=== PATIENT | male | born 1945 | race Caucasian/White ===

== ENCOUNTER → 2018-10-04 | Outpatient (CLI) | payer OTHER ==
[~2018-10-04] MED LIST: ADULT LOW DOSE81 MG PO; APAP650 PO; CENTRUM SILVER1 EAC1 PO; CIPROFLOXACIN500 M3 PO; CLARITIN10 MG PO; DEXILANT60 MG PO; FLOMAX PO; FLOMAX0.4 MG PO; GAS-X125 MG PO; HYDROCHLOROTHIA25 M1 PO; HYDROCODONE-AP1 EA11 PO; HYDROXYCHLOROQ200 M1 PO; ICAPS TABLET1 EACH PO; IMODIUM ADVANC1 EAC1 PO; POTASSIUM CITR15 MEQ PO; PREVACID 24HR15 MG PO; PREVALITE PACKET4 GM PO; PROTONIX40 M1 PO; UNICOMPLEX M TA1 TA1 PO; [UNRECOGNIZED DRUG - OTHER] PO
== END ==
LOC: RAD 09:09
DX: M25.512 Pain in left shoulder (principal)

== ENCOUNTER → 2018-10-08 | Outpatient (CLI) | payer OTHER | LOC: MRI 12:29 | DX: S46.012A Strain of muscle(s) and tendon(s) of the rotator cuff of left shoulder, initial encounter (principal); M19.012 Primary osteoarthritis, left shoulder; W19.XXXA Unspecified fall, initial encounter; Y93.89 Activity, other specified; Y92.89 Other specified places as the place of occurrence of the external cause; Y99.8 Other external cause status ==

== ENCOUNTER → 2020-03-14 | Outpatient (CLI) | payer OTHER ==
[~2020-03-14] MED LIST changes: +ACID REDUCER20 MG PO; +ALLERGY RELIEF10 M1 PO; +FOCUS FACTOR PO; +PRESERVISION A1 EACH PO; +VITAMIN D350 MC3 PO
== END ==
LOC: LAB 08:00
PROVIDERS: ATTEND Student in an Organized Health Care Education/Training Program
DX: Z01.812 Encounter for preprocedural laboratory examination (principal); Z11.59 Encounter for screening for other viral diseases

== ENCOUNTER → 2020-03-19 | Outpatient (CLI) | payer OTHER ==
[~2020-03-19] VITALS: Ht 182.9 cm; Wt 83.5 kg
--- NOTE | 2020-03-20 18:06 | PATH ---
[facility] [address] [place] [address] PATHOLOGY RPT PROCEDURE Name: IRVINGHELEN SOSA Room #: REG [facility] MDonavan.#: [id number] Admission: 03/19/20 Date of : 43 Discharge: Report #: [id number] Path Case #: [id number] [facility] Accession Number: [id number] . 01 Material submitted: . colon - RANDOM COLON BIOPSY R/O MICROSCOPIC COLITIS . 01 Clinical history: . Change in bowel habits Normal colon Rule out microscopic colitis . 02 Diagnosis: Large intestine, random colon, endoscopic biopsy: - Nonspecific changes with a rare focus of cryptitis. - Negative for dysplasia or malignancy. (IUV:pit 03/20/2020) QTP 03/20/2020 1336 Local . 02 Comment: A rare focus of cryptitis is identified. There is no ulceration, or crypt abscess formation present. Findings are suggestive of either a resolved episode of colitis, a focal self-limited episode of colitis, medication or drug induced colitis, or even bowel preparation. Please correlate clinically. (IUV:pit 03/20/2020) . 02 Electronically signed: . Serena Mendes MD, Pathologist NPI- [id number] . 01 Gross description: . The specimen is received in formalin, labeled "Helen Irving, random colon BX" and consists of multiple fragments of pink-lemus tissue measuring 1.2 x 0.8 x 0.3 cm in aggregate which are entirely submitted in A1. (SDY; 03/19/2020) SYU/SYU 03/19/2020 1744 Local . 02 Pathologist provided ICD-10: K62.89 . 02 CPT . 800324 Specimen Comment: A courtesy copy of this report has been sent to [phone] Specimen Comment: [id number] Specimen Comment: Report sent to / [place] [address] PATHOLOGY RPT PROCEDURE Name: HELEN IRVING [facility] Room #: REG [facility]#: [id number] Admission: 03/19/20 Date of : 43 Discharge: Report #: [id number] Path Case #: [id number] Performed at: [facility] [place] [address], [place] [id number] MD Kei Goncalves MD Phone: [phone] Performed at: [address] [id number] MD Serena Mendes MD Phone: [phone]
== END | disposition home or self-care (01) ==
LOC: GI 09:35
PROVIDERS: ATTEND Internal Medicine Gastroenterology
DX: R10.31 Right lower quadrant pain (principal); K62.89 Other specified diseases of anus and rectum; K64.8 Other hemorrhoids; I10 Essential (primary) hypertension; R19.4 Change in bowel habit; N40.0 Benign prostatic hyperplasia without lower urinary tract symptoms; M06.9 Rheumatoid arthritis, unspecified; K21.9 Gastro-esophageal reflux disease without esophagitis; H40.9 Unspecified glaucoma; Z98.890 Other specified postprocedural states; Z79.899 Other long term (current) drug therapy; Z85.820 Personal history of malignant melanoma of skin; Z87.442 Personal history of urinary calculi; Z98.41 Cataract extraction status, right eye; Z98.42 Cataract extraction status, left eye; Z90.49 Acquired absence of other specified parts of digestive tract
CPT/HCPCS: 62110; 62900